=== PATIENT | male | born 1975 | race African-American/Black ===

== ENCOUNTER 2017-10-25 01:34 | Observation (INO) ==
[2017-10-25] MEDS ORDERED: ASPIRIN 325 MG TABLET PO STA (02:01)
[2017-10-25] MEDS ORDERED: NITROGLYCERIN 2% OINT 1 INCH/GM PACK TOP STA (02:06)
[2017-10-25 02:07] LABS: Basophils # 0.1 10*3/uL (0.0-0.2); Basophils % 0.5 % (0.0-0.8); Eosinophils # 0.2 10*3/uL (0.0-0.87); Eosinophils % 2.5 % (0.00-10.9); Hematocrit 38.5 VOL% (42.0-52.0); Hemoglobin 12.7 GM/DL (14.0-18.0); Immature Granulocytes % 0.2 %; Immature Granulocytes Absolute 0.02 #; Lymphocytes # 2.2 10*3/uL (1.4-4.0); Lymphocytes % 24.1 % (21.2-54.2); Mean Corpuscular Hemoglobin 29 PG (27-34); Mean Corpuscular Volume 87.1 FL (87-102); Mean Platelet Volume 11.4 FL (9.6-12.0); Monocytes # 0.6 10*3/uL (0.11-0.8); Monocytes % 6.6 % (1.7-12.7); Neutrophils # 6.1 10*3/uL (1.4-7.4); Neutrophils % 66.1 % (38.7-73.9); Platelet Count 308 T/CUMM (130-400); Red Blood Count 4.42 MC/CUMM (3.8-5.5); Red Cell Distribution Width 12.4 % (9.3-17.3); White Blood Count 9.2 T/CUMM (4-12)
[2017-10-25 02:13] LABS: INR 0.9; PT Patient Result 9.5 SECS
[2017-10-25 02:22] LABS: Alanine Aminotransferase 14 U/L (16-61); Albumin 2.5 G/DL (3.4-5.0); Alkaline Phosphatase 108 U/L (45-117); Aspartate Amino Transferase 10 U/L (0-37); Bilirubin,Total < 0.39 MG/DL (0.2-1.0); Blood Urea Nitrogen 37 MG/DL (7-18); Calcium 8.6 MG/DL (8.5-10.1); Glucose 170 MG/DL (74-106); Osmolality,Calculated 285.8 MOS/KG (273-304); Potassium 4.4 MMOL/L (3.5-5.1); Sodium 137 MMOL/L (136-145); Total Protein 7.3 G/DL (6.4-8.3)
[2017-10-25] MEDS ORDERED: LABETALOL 20 MG/4 ML SYRINGE IV STA (02:45)
[2017-10-25] MEDS ORDERED: GLUCAGON 1 MG VIAL IM PRN ×2 (05:22→10:59)
[2017-10-25] MEDS ORDERED: ZALEPLON 5 MG CAPSULE PO PRN (05:22)
[2017-10-25] MEDS ORDERED: ASPIRIN CHEW 81 MG TABLET PO ONE (05:22)
[2017-10-25] MEDS ORDERED: ACETAMINOPHEN 325 MG TABLET PO PRN (05:22)
[2017-10-25] MEDS ORDERED: NITROGLYCERIN SL 0.4 MG TABLET SL PRN (05:22)
[2017-10-25] MEDS ORDERED: ONDANSETRON 4 MG/2 ML VIAL IV PRN (05:22)
[2017-10-25] MEDS ORDERED: DEXTROSE 50% 25 GM/50 ML VIAL IV PRN ×2 (05:22→10:59)
[2017-10-25] MEDS ORDERED: MORPHINE 4 MG/1 ML VIAL IV PRN (05:22)
[2017-10-25] MEDS ORDERED: DOCUSATE SODIUM 100 MG CAPSULE PO PRN (05:22)
[2017-10-25] MEDS: amLODIPine 10 MG TABLET PO SCH ×2 (05:52→08:44)
[2017-10-25] MEDS: NITROGLYCERIN 2% OINT 1 INCH/GM PACK TOP SCH ×3 (05:53→18:14)
[2017-10-25 06:44] LABS: Risk Ratio 6.31; VLDL CHOLESTEROL 26.8 MG/DL
[2017-10-25] MEDS: PANTOPRAZOLE 40 MG TABLET PO SCH (08:44)
[2017-10-25] MEDS: ENOXAPARIN 30 MG/0.3 ML SYRINGE SUBCUT SCH (08:44)
[2017-10-25] MEDS: INSULIN REGULAR 100 UNIT/ML SUBCUT SCH ×4 (08:57→22:04)
[2017-10-25] MEDS ORDERED: CARVEDILOL 3.125 MG TABLET PO SCH (09:00)
[2017-10-25] MEDS: niCARdipine INJ 25 MG in SODIUM CHLORIDE 0.9% 240 ML IV SCH ×2 (10:04→15:11)
[2017-10-25] MEDS: INSULIN GLARGINE 100 UNIT/ML SUBCUT SCH ×2 (10:30→11:18)
[2017-10-25 10:35] LABS: Apearance,Urine CLEAR (Clear); Bilirubin,Urine Negative (Negative); Blood, Urine Small mg/dL (Negative); Glucose,Urine (UA) 150 mg/dL (Negative); Ketones,Urine Negative (Negative); Nitrite,Urine Negative (Negative); Protein,Urine >=500 MG/DL; RBC,Urine 2 /HPF (0-4); Urine Color Straw (Yellow); Urine Specific Gravity 1.007 (1.001-1.035); Urine Urobilinogen < 2.0 EU/DL (0.2-1.0); WBC,Urine 1 /HPF (0-6)
[2017-10-25 10:42] LABS: Barbiturates Screen,Urine Negative (Negative); Benzodiazepines Screen,Urine Negative (Negative); Cannabinoid Screen,Urine Negative (Negative); Opiate Screen,Urine Negative (Negative); Phencyclidine Screen,Urine Negative (Negative)
[2017-10-25 13:51] LABS: Protein/Creatinine Ratio,Urine 5.4 RATIO
[2017-10-25] MEDS: niCARdipine INJ 50 MG in SODIUM CHLORIDE 0.9% 480 ML IV SCH (19:54)
[2017-10-25] MEDS: CARVEDILOL 6.25 MG TABLET PO SCH (21:59)
[2017-10-26] MEDS: NITROGLYCERIN 2% OINT 1 INCH/GM PACK TOP SCH ×5 (01:15→23:33)
[2017-10-26 06:09] LABS: Calcium 8.3 MG/DL (8.5-10.1)
[2017-10-26 06:10] LABS: Osmolality,Calculated 286.3 MOS/KG (273-304); Potassium 4.6 MMOL/L (3.5-5.1)
[2017-10-26] MEDS ORDERED: REGADENOSON 0.4 MG/5 ML SYRINGE IV ONE (09:11)
[2017-10-26] MEDS: INSULIN REGULAR 100 UNIT/ML SUBCUT SCH ×4 (09:47→20:21)
[2017-10-26] MEDS: INSULIN GLARGINE 100 UNIT/ML SUBCUT SCH (10:22)
[2017-10-26] MEDS: PANTOPRAZOLE 40 MG TABLET PO SCH (10:22)
[2017-10-26] MEDS: CARVEDILOL 6.25 MG TABLET PO SCH ×2 (10:22→20:19)
[2017-10-26] MEDS: amLODIPine 10 MG TABLET PO SCH (10:22)
[2017-10-26] MEDS: ENOXAPARIN 30 MG/0.3 ML SYRINGE SUBCUT SCH (10:23)
[2017-10-26] MEDS: niCARdipine INJ 25 MG in SODIUM CHLORIDE 0.9% 240 ML IV SCH (10:35)
[2017-10-26] MEDS ORDERED: hydrALAZINE 20 MG/1 ML VIAL IV PRN (13:38)
[2017-10-26] MEDS: hydrALAZINE 25 MG TABLET PO SCH ×2 (14:03→20:19)
[2017-10-26] MEDS: niCARdipine INJ 50 MG in SODIUM CHLORIDE 0.9% 480 ML IV SCH (20:24)
[2017-10-27 05:40] LABS: Calcium 9.2 MG/DL (8.5-10.1); Osmolality,Calculated 289.3 MOS/KG (273-304); Potassium 4.7 MMOL/L (3.5-5.1)
[2017-10-27] MEDS: NITROGLYCERIN 2% OINT 1 INCH/GM PACK TOP SCH (05:43)
[2017-10-27] MEDS: INSULIN REGULAR 100 UNIT/ML SUBCUT SCH ×2 (07:14→11:32)
[2017-10-27] MEDS: ENOXAPARIN 30 MG/0.3 ML SYRINGE SUBCUT SCH (09:00)
[2017-10-27] MEDS: CARVEDILOL 6.25 MG TABLET PO SCH (09:01)
[2017-10-27] MEDS: INSULIN GLARGINE 100 UNIT/ML SUBCUT SCH (09:01)
[2017-10-27] MEDS: amLODIPine 10 MG TABLET PO SCH (09:01)
[2017-10-27] MEDS: PANTOPRAZOLE 40 MG TABLET PO SCH (09:01)
[2017-10-27] MEDS: hydrALAZINE 25 MG TABLET PO SCH (09:01)
[2017-10-27] MEDS ORDERED: LOSARTAN 50 MG TABLET PO SCH (10:00)
[2017-10-27 11:25] VITALS: BP 154/94
== END 2017-10-27 12:22 | disposition home or self-care (01) ==
LOC: N.EDINP 01:34 → N.ED 01:34 → SUATTDRO 02:54 → N.4E 05:06 → N.CC 09:22
PROVIDERS: ADMIT Internal Medicine Cardiovascular Disease; ATTEND Family Medicine